=== PATIENT | female | born 1975 | race Caucasian/White ===

== ENCOUNTER 2017-10-22 21:10 | Emergency (ER) | payer MEDICAID ==
[~2017-10-22] VITALS: Ht 167.6 cm; Wt 56.7 kg
--- NOTE | 2017-10-22 23:15 | NUR ---
DR GORDON MCGREGOR MD AT BEDSIDE FOR MSE.
[2017-10-22] MEDS ORDERED: NEOMY/POLYMYX B/HC OTIC SOL 10 ML BOTTLE ONE (23:20)
--- NOTE | 2017-10-22 23:35 | NUR ---
Patient discharged to home in stable conditon. Written and verbal after care instructions given. Patient verbalizes understanding of instructions.
[2017-10-23 00:17] VITALS: BP 114/74
== END 2017-10-23 00:18 | disposition home or self-care (01) ==
LOC: ER 21:10
DX: H66.91 Otitis media, unspecified, right ear (principal)
CPT/HCPCS: A4663; J3590

== ENCOUNTER 2017-11-27 22:00 | Emergency (ER) | payer MEDICAID ==
[~2017-11-27] VITALS: Ht 167.6 cm; Wt 59.0 kg
[2017-11-27] MEDS ORDERED: RANI150T8 PO (22:14)
[2017-11-27 22:30] LABS: *BILIRUBIN,URIN NEGATIVE (NEGATIVE); *BLOOD, URINE 1+ (NEGATIVE); *CLARITY,URINE CLEAR (CLEAR); *COLOR,URINE YELLOW (YELLOW); *KETONES,URINE NEGATIVE (NEGATIVE); *PROTEIN,URINE NEGATIVE (NEGATIVE); *UROBILINOGEN,URINE 0.2 E.U./dl (NORMAL); LEUKOCYTE ESTERASE ,URINE NEGATIVE (NEGATIVE); NITRITE, URINE NEGATIVE (NEGATIVE); PH,URINE 6.5 (5.0-8.0); UGLUCOSE NEGATIVE (NEGATIVE)
[2017-11-27] MEDS ORDERED: ONDANSETRON 4 MG/2 ML VIAL IV ONE (22:30)
[2017-11-27] MEDS ORDERED: IV NORMAL SALINE 1000 ML BAG IV ONE (22:30)
[2017-11-27] MEDS ORDERED: PANTOPRAZOLE SODIUM 40 MG VIAL IV ONE (22:30)
[2017-11-27 22:37] LABS: *URINE HCG, QUAL NEGATIVE (NEGATIVE)
[2017-11-27] MEDS ORDERED: PANTOPRAZOLE SODIUM 40 MG VIAL ONE (22:37)
[2017-11-27] MEDS ORDERED: ONDANSETRON 4 MG/2 ML VIAL ONE (22:37)
[2017-11-27 22:45] LABS: BASOPHILS % (AUTO) 0.4 % (0.0-2.0); EOSINOPHILS # (AUTO) 0.1 K/uL (0.0-0.7); HEMATOCRIT 37.6 % (31.2-41.9); HEMOGLOBIN 13.1 g/dL (10.9-14.3); LYMPHOCYTES % (AUTO) 33.6 % (20.5-51.5); MEAN CORPUSCULAR HEMOGLOBIN 30.3 uug (24.7-32.8); MEAN CORPUSCULAR HGB CONC 35 g/dL (32.3-35.6); MEAN CORPUSCULAR VOLUME 87.4 fL (75.5-95.3); MONOCYTES # (AUTO) 0.3 K/uL (2.0-10.0); MONOCYTES % (AUTO) 4.7 % (0.0-11.0); NEUTROPHILS # (AUTO) 3.5 K/uL (1.8-8.9); NEUTROPHILS % (AUTO) 60.3 % (38.5-71.5); PLATELET COUNT (AUTO) 213 K/uL (179-408); RED BLOOD CELL COUNT(AUTO) 4.31 MIL/uL (3.63-4.92); WHITE BLOOD COUNT (AUTO) 5.9 K/uL (3.8-11.8)
[2017-11-27 22:46] LABS: SQUAMOUS EPITHELIAL CELL,UR FEW /HPF (NONE SEEN); WBC,URINE 0-3 /HPF (0-3)
[2017-11-27 23:00] LABS: BILIRUBIN,DIRECT 0.1 mg/dL (0.0-0.2); BILIRUBIN,TOTAL 0.4 mg/dL (0.2-1.0); CREATININE 0.9 mg/dL (0.6-1.3); POTASSIUM 3.2 mmol/L (3.5-5.1); TOTAL PROTEIN, SERUM 7.8 g/dL (6.4-8.2)
--- NOTE | 2017-11-28 00:06 | NUR ---
Patient discharged to home in stable conditon. Written and verbal after care instructions given. Patient verbalizes understanding of instructions.
[2017-11-28 00:07] VITALS: BP 118/74
== END 2017-11-28 00:08 | disposition home or self-care (01) ==
LOC: ER 22:02
DX: K80.20 Calculus of gallbladder without cholecystitis without obstruction (principal); Z79.899 Other long term (current) drug therapy
CPT/HCPCS: 36415; 83690; 84703; 85025; A4663; C9113; J2405; J7030

== ENCOUNTER 2018-03-01 11:18 | Emergency (ER) | payer MEDICAID ==
[~2018-03-01] VITALS: Ht 165.1 cm; Wt 50.8 kg
[~2018-03-01 11:18] MED LIST: RANI150T8 PO
[2018-03-01] MEDS ORDERED: DOCU-141 PO (11:42)
[2018-03-01] MEDS ORDERED: HYDR-552 PO (11:42)
[2018-03-01 11:56] LABS: *BILIRUBIN,URIN NEGATIVE (NEGATIVE); *BLOOD, URINE 2+ (NEGATIVE); *CLARITY,URINE CLEAR (CLEAR); *COLOR,URINE YELLOW (YELLOW); *KETONES,URINE NEGATIVE (NEGATIVE); *PROTEIN,URINE NEGATIVE (NEGATIVE); LEUKOCYTE ESTERASE ,URINE 2+ (NEGATIVE); NITRITE, URINE NEGATIVE (NEGATIVE); PH,URINE 8.5 (5.0-8.0); UGLUCOSE NEGATIVE (NEGATIVE)
[2018-03-01 12:01] LABS: BACTERIA,URINE FEW /HPF (NONE SEEN); SQUAMOUS EPITHELIAL CELL,UR FEW /HPF (NONE SEEN)
[2018-03-01 12:06] LABS: *URINE HCG, QUAL NEGATIVE (NEGATIVE)
--- NOTE | 2018-03-01 12:07 | NUR ---
PT IS IN ROOM #2A. DR ZAMORA EVALUATED THE PT.
--- NOTE | 2018-03-01 15:24 | NUR ---
Patient discharged to home in stable conditon. Written and verbal after care instructions given. Patient verbalizes understanding of instructions.
== END 2018-03-01 15:25 | disposition home or self-care (01) ==
LOC: ER 11:19
DX: T81.4XXA Infection following a procedure, initial encounter (principal); Z79.891 Long term (current) use of opiate analgesic; Z79.899 Other long term (current) drug therapy
CPT/HCPCS: 76700; 76856; 81001; 84703; 87086; 99285; A4663

== ENCOUNTER 2018-08-22 15:31 | Emergency (ER) | payer MEDICAID ==
[~2018-08-22] VITALS: Ht 170.2 cm; Wt 56.2 kg
[~2018-08-22 15:31] MED LIST changes: +DOCU-141 PO; +HYDR-4384 PO; -RANI150T8 PO
--- NOTE | 2018-08-22 15:55 | NUR ---
Patient discharged to home in stable conditon. Written and verbal after care instructions given. Patient verbalizes understanding of instructions.
== END 2018-08-22 16:04 | disposition home or self-care (01) ==
LOC: ER 15:32
DX: R11.2 Nausea with vomiting, unspecified (principal); Z79.899 Other long term (current) drug therapy; Z79.891 Long term (current) use of opiate analgesic
CPT/HCPCS: A4663

== ENCOUNTER 2018-11-25 05:04 | Emergency (ER) | payer MEDICAID ==
[~2018-11-25] VITALS: Ht 172.7 cm; Wt 65.8 kg
[2018-11-25] MEDS ORDERED: ONDANSETRON ODT 4 MG TAB.RAPDIS ONE (05:29)
[2018-11-25] MEDS ORDERED: PHENAZOPYRIDINE HCL 100 MG TABLET ONE (05:30)
[2018-11-25] MEDS: HYDROCODONE/APAP 5-325MG TABLET PO ONE (05:30)
[2018-11-25] MEDS ORDERED: HYDROCODONE/APAP 5-325MG TABLET ONE (05:30)
[2018-11-25] MEDS: PHENAZOPYRIDINE HCL 100 MG TABLET PO ONE (05:30)
[2018-11-25] MEDS: ONDANSETRON ODT 4 MG TAB.RAPDIS SL ONE (05:30)
[2018-11-25 05:32] LABS: *BILIRUBIN,URIN NEGATIVE (NEGATIVE); *BLOOD, URINE 2+ (NEGATIVE); *CLARITY,URINE CLEAR (CLEAR); *COLOR,URINE YELLOW (YELLOW); *KETONES,URINE NEGATIVE (NEGATIVE); *UROBILINOGEN,URINE 0.2 E.U./dl (NORMAL); LEUKOCYTE ESTERASE ,URINE NEGATIVE (NEGATIVE); NITRITE, URINE NEGATIVE (NEGATIVE); PH,URINE 6.5 (5.0-8.0); UGLUCOSE NEGATIVE (NEGATIVE)
[2018-11-25 05:36] LABS: *URINE HCG, QUAL NEGATIVE (NEGATIVE)
[2018-11-25 05:37] LABS: BACTERIA,URINE NONE SEEN /HPF (NONE SEEN); SQUAMOUS EPITHELIAL CELL,UR FEW /HPF (NONE SEEN); WBC,URINE 0-3 /HPF (0-3)
[2018-11-25 05:38] LABS: MUCUS,URINE FEW /LPF (0-FEW)
--- NOTE | 2018-11-25 06:37 | NUR ---
Ultrasound at bedside.
--- NOTE | 2018-11-25 07:21 | NUR ---
Report given to day shift nurse.
--- NOTE | 2018-11-25 07:23 | NUR ---
Patient is for discharge, pending papers@this time. Patient denies pains, calm & breathing easily,NAD.
--- NOTE | 2018-11-25 07:28 | NUR ---
Patient discharged to home in stable conditon. Written and verbal after care instructions given to patient and spouse. Patient and spouse verbalized understanding of instructions.
== END 2018-11-25 07:44 | disposition home or self-care (01) ==
LOC: ER 05:06
DX: R10.30 Lower abdominal pain, unspecified (principal); R11.0 Nausea; Z90.49 Acquired absence of other specified parts of digestive tract; Z79.899 Other long term (current) drug therapy
CPT/HCPCS: 76770; 84703; A4663; Q0162

== ENCOUNTER 2021-08-03 08:42 | Emergency (ER) | payer MEDICAID ==
[~2021-08-03] VITALS: Ht 165.1 cm; Wt 61.7 kg
[2021-08-03 09:15] LABS: *BILIRUBIN,URIN NEGATIVE (NEGATIVE); *BLOOD, URINE 2+ (NEGATIVE); *CLARITY,URINE CLEAR (CLEAR); *COLOR,URINE YELLOW (YELLOW); *KETONES,URINE NEGATIVE (NEGATIVE); *UROBILINOGEN,URINE 0.2 E.U./dl (NORMAL); LEUKOCYTE ESTERASE ,URINE TRACE (NEGATIVE); NITRITE, URINE NEGATIVE (NEGATIVE); UGLUCOSE NEGATIVE (NEGATIVE)
[2021-08-03 09:16] LABS: *URINE HCG, QUAL NEGATIVE (NEGATIVE)
[2021-08-03] MEDS ORDERED: IV NORMAL SALINE 1000 ML BAG IV ONE (11:00)
[2021-08-03 11:13] LABS: HEMATOCRIT 39.2 % (31.2-41.9); MEAN CORPUSCULAR HEMOGLOBIN 30.5 uug (24.7-32.8); MEAN CORPUSCULAR VOLUME 88.1 fL (75.5-95.3); PLATELET COUNT (AUTO) 233 K/uL (179-408)
[2021-08-03 11:19] LABS: CREATININE 0.7 mg/dL (0.6-1.3); POTASSIUM 3.7 mmol/L (3.5-5.1)
[2021-08-03 11:55] LABS: BACTERIA,URINE FEW /HPF (NONE SEEN); SQUAMOUS EPITHELIAL CELL,UR FEW /HPF (NONE SEEN); WBC,URINE 0-3 /HPF (0-3)
[2021-08-03] MEDS ORDERED: KETOROLAC TROMETHAMINE 30 MG INJ IVP ONE (12:00)
[2021-08-03] MEDS ORDERED: SIMETHICONE 80 MG TAB.CHEW PO ONE (12:00)
[2021-08-03] MEDS ORDERED: SIMETHICONE 80 MG TAB.CHEW ONE (12:11)
[2021-08-03] MEDS ORDERED: KETOROLAC TROMETHAMINE 30 MG INJ ONE (12:11)
--- NOTE | 2021-08-03 12:12 | NUR ---
Patient discharged to home in stable condition. Written and verbal after care instructions given. Patient verbalizes understanding of instructions. Stressed follow up or return to ER for worsening s/s.
[2021-08-03 12:14] VITALS: BP 109/69
== END 2021-08-03 12:15 | disposition home or self-care (01) ==
LOC: ER 08:43
DX: R10.2 Pelvic and perineal pain (principal); Z82.49 Family history of ischemic heart disease and other diseases of the circulatory system; N83.202 Unspecified ovarian cyst, left side; Z90.49 Acquired absence of other specified parts of digestive tract
CPT/HCPCS: 36415; 76856; 80048; 81001; 84703; 85025; 86850; 86900; 86901; 96361; 96374; 99284; J1885; A4663; J7030

== ENCOUNTER 2021-11-24 15:06 | Emergency (ER) | payer MEDICAID ==
[~2021-11-24] VITALS: Ht 172.7 cm; Wt 61.2 kg
--- NOTE | 2021-11-24 15:15 | NUR ---
Patient ambulatory alert and oriented x4, complaints of posterior neck and left shoulder pain 7/10. No history of injury, denies nausea/vomiting. Vitals stable.
--- NOTE | 2021-11-24 15:30 | NUR ---
MD at bedside, medical screening exam in process.
[2021-11-24] MEDS ORDERED: ACETAMINOPHEN 325 MG TABLET ONE (15:41)
[2021-11-24] MEDS ORDERED: KETOROLAC TROMETHAMINE 30 MG INJ ONE (15:42)
[2021-11-24] MEDS ORDERED: HYDROCODONE/APAP 5-325MG TABLET ONE (15:42)
[2021-11-24] MEDS ORDERED: ACETAMINOPHEN 325 MG TABLET PO ONE (15:45)
[2021-11-24] MEDS ORDERED: KETOROLAC TROMETHAMINE 30 MG INJ IM ONE (15:45)
[2021-11-24] MEDS ORDERED: HYDROCODONE/APAP 5-325MG TABLET PO ONE (15:45)
[2021-11-24] MEDS ORDERED: CYCL5TAB PO (15:57)
[2021-11-24] MEDS ORDERED: CYCLOBENZAPRINE HCL 10 MG TABLET ONE (15:58)
[2021-11-24] MEDS ORDERED: NAPR-1196 PO (15:58)
[2021-11-24] MEDS ORDERED: CYCLOBENZAPRINE HCL 10 MG TABLET PO ONE (16:00)
[2021-11-24 16:34] VITALS: BP 128/80
== END 2021-11-24 16:35 | disposition home or self-care (01) ==
LOC: ER 15:07
DX: M54.2 Cervicalgia (principal); Z90.49 Acquired absence of other specified parts of digestive tract
CPT/HCPCS: 96372; 99283; J1885; A4663

== ENCOUNTER 2022-12-13 15:46 | Emergency (ER) | payer MEDICAID ==
[~2022-12-13] VITALS: Ht 172.7 cm; Wt 63.5 kg
[~2022-12-13 15:46] MED LIST changes: +CYCL5TAB PO; +NAPR-1196 PO
--- NOTE | 2022-12-13 15:56 | NUR ---
Dr Sam seen and examined the pt.
[2022-12-13 16:10] LABS: *BILIRUBIN,URIN NEGATIVE (NEGATIVE); *BLOOD, URINE 2+ (NEGATIVE); *CLARITY,URINE CLEAR (CLEAR); *COLOR,URINE YELLOW (YELLOW); *KETONES,URINE 1+ (NEGATIVE); LEUKOCYTE ESTERASE ,URINE NEGATIVE (NEGATIVE); NITRITE, URINE NEGATIVE (NEGATIVE); PH,URINE 5.5 (5.0-8.0); UGLUCOSE NEGATIVE (NEGATIVE)
[2022-12-13 16:14] LABS: *URINE HCG, QUAL NEG (NEGATIVE)
[2022-12-13 16:16] LABS: MEAN CORPUSCULAR VOLUME 88.2 fL (75.5-95.3); PLATELET COUNT (AUTO) 287 K/uL (179-408)
[2022-12-13 16:32] LABS: BILIRUBIN,DIRECT 0.1 mg/dL (0.0-0.2); BILIRUBIN,TOTAL 0.6 mg/dL (0.2-1.0); CREATININE 0.8 mg/dL (0.6-1.3); TOTAL PROTEIN, SERUM 7.8 g/dL (6.4-8.2)
--- NOTE | 2022-12-13 16:33 | NUR ---
Pt out of ER for Ct scan.
[2022-12-13 16:36] LABS: POTASSIUM 3.4 mmol/L (3.5-5.1)
--- NOTE | 2022-12-13 16:55 | NUR ---
Pt back from Ct, resting in bed. NAD noted.
[2022-12-13] MEDS ORDERED: DICY20TA11 PO (17:26)
[2022-12-13] MEDS ORDERED: DICYCLOMINE HCL 20 MG TABLET PO SCH (17:30)
[2022-12-13] MEDS ORDERED: IBUP-1955 PO (17:35)
[2022-12-13 17:45] VITALS: BP 112/60
[2022-12-13 20:19] LABS: BACTERIA,URINE NONE SEEN /HPF (NONE SEEN); RBC,URINE 20-50 /HPF (0-3); SQUAMOUS EPITHELIAL CELL,UR FEW /HPF (NONE SEEN); WBC,URINE 0-3 /HPF (0-3)
== END 2022-12-13 17:46 | disposition home or self-care (01) ==
LOC: ER 15:46
DX: R10.30 Lower abdominal pain, unspecified (principal); R19.7 Diarrhea, unspecified; Z90.49 Acquired absence of other specified parts of digestive tract; Z79.1 Long term (current) use of non-steroidal anti-inflammatories (NSAID); Z79.899 Other long term (current) drug therapy
CPT/HCPCS: 36415; 83690; 84703; 85025; A4663